=== PATIENT | female | born 2000 | race African-American/Black ===

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

== ENCOUNTER 2020-12-07 09:25 | Emergency (ER) | payer OTHER, SELFPAY ==
[2020-12-07 09:43] VITALS: BP 116/68; PULSE 77; RESP 16; TEMP 36.3; O2SAT 100
--- NOTE | 2020-12-07 10:21 | ED.GENADULT ---
HPI - General Adult General Chief complaint: Dental/Oral Stated complaint: left side jaw pain Time Seen by Provider: 12/07/20 10:21 Source: patient and RN notes reviewed Mode of arrival: ambulatory Limitations: no limitations History of Present Illness HPI narrative: 20-year-old -[place] female presents with complaints of left lower dental pain for the past 7 days. Venessa reports increasing symptoms over the past 2-3 days with increasing pain in the morning when yawning. Ibuprofen, last taken 2 days ago without relief. Denies any drainage. No fever. No neck swelling. No limitation with speaking or swallowing. Has a history of dental caries. Patient reports have not seen a dentist recently. No dental trauma. No oral lesions. Exacerbating factors consist of chewing on LT side and opening mouth wide. No relieving factors. No dentures or bridges. Tolerating liquids well. LMP 12/05/2020. Remains active. The patient reports she has not been diagnosed with COVID-19. The patient reports she is not waiting for the results of a COVID-19 lab test. The patient reports she does not have chills, weakness, or fatigue. The patient reports she does not have a new or worsening cough or shortness of breath. Denies chest pain. The patient reports she does not have any rhinorrhea, congestion, sore throat, loss of taste or smell, nausea, vomiting, abdominal pain, and diarrhea. Denies recent traveling. Denies concerns for COVID-19 or exposures. At this time, the patient is not suspected of having COVID-19. Some parts of this dictation were generated by voice recognition software and may contain typographical and/or grammatical inaccuracies. Related Data Allergies Allergy/AdvReac Type Severity Reaction Status Date / Time No Known Allergies Allergy Verified 12/07/20 10:03 Review of Systems Review of Systems: Narrative: CONSTITUTIONAL: Denies fever, chills, sweats. EYES: Denies visual changes, redness, discharge. ENT: Denies rhinorrhea, congestion, sore throat, otalgia. Complains of LT lower dental pain. CARDIOVASCULAR: Denies chest pain, palpitations, edema. RESPIRATORY: Denies dyspnea, wheezing, cough. GASTROINTESTINAL: Denies abdominal pain, nausea, vomiting, diarrhea. SKIN: Denies rash or itching. MUSCULOSKELETAL: Denies acute back pain, joint pain, or myalgia. NEUROLOGIC: Denies numbness or focal weakness. PSYCHIATRIC: Denies anxiety or depression. All systems reviewed & are unremarkable except as noted in HPI and below. [facility] Past Medical History Medical History (Updated 12/08/20 @ 00:01 by Carina Glez) No significant past medical history Surgical History Surgical History (Updated 12/07/20 @ 10:30 by ELIU Mane) No significant past surgical history Family History Family History (Updated 12/07/20 @ 10:30 by ELIU Mane) Father Alive and well Mother Alive and well Social History Social History (Updated 12/07/20 @ 10:31 by ELIU Mane) Smoking status: Never smoker Tobacco type: cigarettes Second hand tobacco smoke exposure: No Alcohol intake: never Substance use: current Substance use type: marijuana Living arrangements: with family Occupation/Education: unemployed Gender identity (if verbalized by the patient): Female Comments At time of signature, agree with the nurse past medical, surgical, social, and family history. There is no relevant family history pertinent to the presenting complaint. Exam Narrative: Exam Narrative: GENERAL: This is a well-nourished, well-developed patient, in no apparent distress. Talks in full sentences and ambulates with steady gait without dyspnea. HEAD: Normocephalic, atraumatic. EYES: PERRL. Sclera clear/white. Vision is grossly intact. EARS: External ears normal, auditory canals clear and without drainage, TMs normal without perforation. Hearing grossly intact. NOSE: External nose normal with no obviou
--- NOTE | 2020-12-07 14:08 | PC.NURSE ---
1405 prescription called into Marly Starkey at [facility] on the [address] d/t [facility] not taking her ins.
== END 2020-12-07 10:36 | disposition home or self-care (01) ==
PROVIDERS: Emergency Provider Nurse Practitioner Family
DX: K08.89 Other specified disorders of teeth and supporting structures (principal)
CPT/HCPCS: 99213; G0463

== ENCOUNTER 2021-01-04 09:25 | Emergency (ER) | payer OTHER, SELFPAY ==
[2021-01-04 09:34] VITALS: BP 125/75; PULSE 74; RESP 16; TEMP 36.4; O2SAT 99
--- NOTE | 2021-01-04 10:41 | ED.DENTAL ---
HPI - Dental/Oral General Chief complaint: Dental/Oral Stated complaint: jaw pain Time Seen by Provider: 01/04/21 10:41 Source: patient Mode of arrival: ambulatory Limitations: no limitations History of Present Illness HPI Narrative: Venessa Yancey is a 20 yo female with no PMH who comes to ER with jaw and tooth pain-seen here a few weeks ago and with the antibiotic and steroids the pain improved but has returned. She was not given a dental list last time she was here and should probably follow-up with a dentist Related Data Allergies Allergy/AdvReac Type Severity Reaction Status Date / Time No Known Allergies Allergy Verified 01/04/21 09:58 Review of Systems Review of Systems: Narrative: CONSTITUTIONAL: Denies fever, chills, sweats. EYES: Denies visual changes, redness, discharge. ENT: Denies rhinorrhea, congestion, sore throat, otalgia. CARDIOVASCULAR: Denies chest pain, palpitations, edema. RESPIRATORY: Denies dyspnea, wheezing, cough GASTROINTESTINAL: Denies abdominal pain, nausea, vomiting, diarrhea. GENITOURINARY: Denies dysuria, hematuria, abnormal discharge SKIN: Denies rash or itching. NEUROLOGIC: Denies numbness, or focal weakness. PSYCHIATRIC: Denies anxiety or depression. Left-sided jaw pain PMFSH Past Medical History Medical History No significant past medical history Surgical History Surgical History No significant past surgical history Family History Family History Father Alive and well Mother Alive and well Social History Social History Smoking status: Never smoker Tobacco type: cigarettes Second hand tobacco smoke exposure: No Alcohol intake: never Substance use: current Substance use type: marijuana Gender identity (if verbalized by the patient): Female Comments At time of signature, I agree with nursing past medical, surgical, social and family history. There is no relevant family history pertinent to the presenting complaint. Exam Narrative: Exam Narrative: GENERAL: This is a well-nourished, well-developed patient, in moderate distress. HEAD: normocephalic, atraumatic. EYES: Sclera clear/white. Vision is grossly intact. EARS: External ears normal,. Hearing grossly intact. Pain on left jaw NOSE: External nose normal without nasal discharge, nares without redness, no rhinorrhea. Pain that starts in the anterior of the ear and runs to the jaw has difficulty opening her mouth wide without pain THROAT: Mucous membranes moist, posterior pharynx pink NECK: Neck supple, non-tender CARDIOVASCULAR: Regular rate and rhythm without murmurs, gallops, or rubs. RESPIRATORY: Clear to auscultation. Breath sounds equal bilaterally. No wheezes, rales, or rhonchi. GASTROINTESTINAL: Abdomen soft, SKIN: warm, intact with no suspicious lesions or rash, good texture and turgor. NEURO: awake, alert, and oriented to person, place and time. There were no obvious focal neurologic abnormalities. Steady gait EXTREMITIES: Normal range of motion. BACK: Nontender without deformity Course Course Emergency Course: Patient seen here a couple weeks ago and given antibiotics and steroids and returns today with return of the left-sided jaw pain Started on clindamycin and high-dose ibuprofen along with viscous lidocaine Vital Signs Vital signs: Vital Signs Temperature 97.5 F L 01/04/21 09:34 Pulse Rate 74 01/04/21 09:34 Respiratory Rate 16 01/04/21 09:34 Blood Pressure 125/75 01/04/21 09:34 Pulse Oximetry 99 01/04/21 09:34 Temperature 97.5 F L 01/04/21 09:34 Pulse Rate 74 01/04/21 09:34 Respiratory Rate 16 01/04/21 09:34 Blood Pressure 125/75 01/04/21 09:34 Pulse Oximetry 99 01/04/21 09:34 MDM - Dental/Oral Differential Diagnosis Differen
== END 2021-01-04 11:04 | disposition home or self-care (01) ==
PROVIDERS: Emergency Provider Nurse Practitioner
DX: R68.84 Jaw pain (principal)
CPT/HCPCS: 99213; G0463

== ENCOUNTER 2021-01-07 13:29 | Emergency (ER) | payer OTHER, SELFPAY ==
--- NOTE | ~2021-01-07 | XR_ITS ---
XR chest 1V DATE: 01/07/2021 13:43 INDICATION: Fever TECHNIQUE: PA chest COMPARISON: None FINDINGS: Normal heart size. No hilar or mediastinal enlargement. The lungs are well inflated and helen ar of infiltrate or consolidation. No pleural effusion or pulmonary vascular congestion or pneumothor ax. Included skeletal structures are unremarkable. IMPRESSION: Negative Reviewed, dictated and finalized at location A. IMPRESSION: Negative
[2021-01-07 13:30] VITALS: BP 136/80; PULSE 115; RESP 18; TEMP 38.3; O2SAT 98
[2021-01-07 16:11] LABS: Basophils Percent Auto 0.5 % (0.2-1.2); Eosinophils Percent Auto 0.3 % (0-4.4); Hematocrit 30.7 % (37.0-47.0); Hemoglobin 9.5 g/dL (12.0-15.0); Immature Granulocyte Absolute 0.01 K/mm3 (0.00-0.031); Immature Granulocyte Percent A 0.3 % (0-0.5); Lymphocytes Absolute Auto 0.26 K/mm3 (0.9-3.2); Lymphocytes Percent Auto 6.9 % (18.3-44.2); Mean Corpuscular HGB Conc 30.9 g/dl (32-36); Mean Corpuscular Hemoglobin 23.6 pg (26-34); Mean Corpuscular Volume 76.4 fl (80-100); Mean Platelet Volume 11.9 fl (7.4-10.4); Monocytes Absolute Auto 0.4 K/mm3 (0.1-0.6); Monocytes Percent Auto 11.1 % (2.6-8.5); Neutrophils Absolute Auto 3.1 K/mm3 (1.3-6.7); Neutrophils Percent Auto 80.9 % (45.5-73.1); Platelet Count Result 198 k/mm3 (150-375); Red Blood Count 4.02 M/mm3 (4.2-5.4); Red Cell Distribution Width 15.9 % (11.5-14.5); White Blood Count 3.8 K/mm3 (4.5-10.0)
[2021-01-07 16:21] LABS: Add Urine Microscopic? YES; Appearance Urine Clear (Clear); Bilirubin Urine Negative (Negative); Blood Urine 2+ (Negative); Color Urine Yellow (Yellow); Glucose Urine UA Negative (Negative); Ketones Urine 1+ mg/dL (Negative); Leukocyte Esterase Ur Negative LEU/UL (Negative); Mucus Urine Rare /lpf; Nitrate Urine Negative (Negative); Protein Urine Negative (Negative); RBC Urine 51-75 /hpf (0-2); Specific Grav Ur 1.018 (1.001-1.035); Squamous Epithelial Cell Urine Rare /hpf (Few); Urobilinogen Urine Negative mg/dL (<2.0); WBC Urine 0-3 /hpf
[2021-01-07 16:22] LABS: Alanine Aminotransferase 10 U/L (4-35); Albumin Level 4.9 g/dL (3.5-5.1); Alkaline Phosphatase 37 U/L (38-126); Anion Gap 12 mmol/L (8-16); Aspartate Amino Transferase 29 U/L (14-36); Bilirubin,Total 0.4 mg/dL (0.2-1.3); Blood Urea Nitrogen 7 mg/dL (7-17); Carbon Dioxide 23 mmol/L (22-30); Chloride 103 mmol/L (98-107); Estimated CRCL calculation 91 ml/min; Estimated Glomerular Filt Rate > 60; Glucose 83 mg/dL (65-110); Lactic Acid Reflex 0.9 mmol/L (0.7-2.1); Potassium 3.6 mmol/L (3.4-5.0); Sodium 138 mmol/L (137-145)
[2021-01-07 17:21] VITALS: BP 124/76; PULSE 106; RESP 20; O2SAT 100
[2021-01-07] MEDS: DEXAMETHASONE SOD PHOS INJ 4 MG/ML VIAL 10 MG IM (18:05)
[2021-01-07] MEDS: KETOROLAC (*BKC) 60 MG/2 ML VIAL IM (18:05)
--- NOTE | 2021-01-07 18:20 | ED.FEVER ---
HPI - Fever General Chief Complaint: Fever Stated Complaint: FEVER, BODYACHES Time Seen by Provider: 01/07/21 17:09 History of Present Illness HPI Narrative: healthy 20 yo female presents to the ED for fever, cough, headache, and bodyaches. She believes that she has been exposed to COVID-19. No SOB, nausea, vomiting, diarrhea. She tried OTC medications with some improvement. Related Data Allergies Allergy/AdvReac Type Severity Reaction Status Date / Time No Known Allergies Allergy Verified 01/07/21 13:30 Review of Systems Review of Systems: All systems reviewed & are unremarkable except as noted in HPI and below PMFSH Past Medical History Medical History No significant past medical history Surgical History Surgical History No significant past surgical history Family History Family History Father Alive and well Mother Alive and well Social History Social History Smoking status: Never smoker Tobacco type: cigarettes Second hand tobacco smoke exposure: No Alcohol intake: never Substance use: current Substance use type: marijuana Gender identity (if verbalized by the patient): Female Exam Const: General: healthy appearing, no acute distress and alert Orientation/consciousness: patient oriented x3 HENMT: Head: normal to inspection Neck: Neck: normal visual inspection and no lymphadenopathy Chest: Chest palpation & inspection: no tenderness Resp: Effort & Inspection: normal respiratory effort Auscultation: clear to auscultation bilaterally, no rales, no rhonchi and no wheezes Cardio: Jugular venous distension: no JVD Rate: regular rate Rhythm: regular rhythm Heart sounds: no murmurs GI: Inspection: non-distended GI Palp: Yes Soft to palpation and No Tenderness to palpation present (GI) Skin: General skin exam: normal color Neuro: General: patient oriented x3 and moves all extremities Speech: normal speech Extrem: General: no edema Psych: Appearance: well kempt Affect: normal affect Course Vital Signs Vital signs: Vital Signs Temperature 38.3 C H 01/07/21 13:30 Pulse Rate 115 H 01/07/21 13:30 Respiratory Rate 18 01/07/21 13:30 Blood Pressure 136/80 01/07/21 13:30 Pulse Oximetry 98 01/07/21 13:30 Temperature 38.3 C H 01/07/21 13:30 Pulse Rate 88 01/07/21 18:24 Respiratory Rate 16 01/07/21 18:24 Blood Pressure 115/77 01/07/21 18:24 Pulse Oximetry 100 01/07/21 18:24 MDM - Fever MDM Narrative Medical decision making narrative: Mild fever. Vitals and symptoms improved with treatment. Most likely COVID-19. No indication for admission. Medical Records Attestation: I reviewed the patient's medical records. Lab Data Attestation: I reviewed the patient's lab results. Result diagrams: 01/07/21 15:43 01/07/21 15:43 Labs: Lab Results 01/07/21 01/07/21 01/07/21 Range/Units 15:43 15:43 15:43 WBC 3.8 L (4.5-10.0) K/mm3 RBC 4.02 L (4.2-5.4) M/mm3 Hgb 9.5 L (12.0-15.0) g/dL Hct 30.7 L (37.0-47.0) % MCV 76.4 L (80-100) fl MCH 23.6 L (26-34) pg MCHC 30.9 L (32-36) g/dl RDW 15.9 H (11.5-14.5) % Plt Count 198 (150-375) k/mm3 MPV 11.9 H (7.4-10.4) fl Immature Gran % (Auto) 0.3 (0-0.5) % Neut % (Auto) 80.9 H (45.5-73.1) % Lymph % (Auto) 6.9 L (18.3-44.2) % Ness % (Auto) 11.1 H (2.6-8.5) % Eos % (Auto) 0.3 (0-4.4) % Baso % (Auto) 0.5 (0.2-1.2) % Lymph # (Auto) 0.26 L (0.9-3.2) K/mm3 Ness # (Auto) 0.4 (0.1-0.6) K/mm3 Eos # (Auto) 0.0 (0-0.3) K/mm3 Baso # (Auto) 0.0 (0.0-0.1) K/mm3 Abs Immat Gran (auto) 0.01 (0.00-0.031) K/mm3 Absolute Neuts (auto) 3.1 (1.3-6.7) K/mm3 Absolute Nucleated
[2021-01-07 18:24] VITALS: BP 115/77; PULSE 88; RESP 16; O2SAT 100
[2021-01-09 15:38] LABS: SARS-CoV-2 RNA PCR Positive
== END 2021-01-07 18:25 | disposition home or self-care (01) ==
PROVIDERS: Emergency Medicine; Emergency Provider Emergency Medicine
DX: U07.1 COVID-19 (principal)
CPT/HCPCS: 36415; 71045; 80053; 81001; 81025; 83605; 85025; 87040; 96372; 99284; C9803; J1100; J1885; U0003; U0005

== ENCOUNTER 2021-08-19 09:00 | Emergency (ER) | payer OTHER, SELFPAY ==
--- NOTE | 2021-08-19 09:03 | ED.EAR ---
HPI - Ear Problem General Chief complaint: Ear Stated complaint: Ear Pain Time Seen by Provider: 08/19/21 09:15 Source: patient, RN notes reviewed and old records reviewed Mode of arrival: ambulatory Limitations: no limitations History of Present Illness HPI Narrative: 21-year-old female presents to the [facility] with complaints of right ear discomfort with decreased hearing. Denies any headache, nausea, vomiting. No chest pain or abdominal pain. No blurry vision or change in vision. Patient states that she was wrestling around with a friend and they clapped her in the ear. Since she has had muffled hearing and ear pain. No discharge. Denies fevers. MD Complaint: ear pain (right) Location: right ear Related Data Home Medications Medication Instructions Recorded Confirmed ferrous sulfate 325 mg PO DAILY 08/19/21 08/19/21 sertraline 50 mg PO DAILY 08/19/21 08/19/21 Allergies Allergy/AdvReac Type Severity Reaction Status Date / Time No Known Allergies Allergy Verified 08/19/21 09:27 Review of Systems Review of Systems: All systems reviewed & are unremarkable except as noted in HPI and below Constitutional: Constitutional: Reports no additional constitutional complaints, Denies chills and Denies fever(s) Eyes: Eyes: Reports no additional eye complaints, Denies change in vision and Denies photophobia ENT: Reports as per HPI, Denies change in voice, Denies dental pain, Denies vertigo, Denies dizziness and Denies throat swelling Comments: Ear pain right Cardiovascular: Cardiovascular: Reports no additional cardiovascular complaints, Denies chest pain and Denies dyspnea Respiratory: Respiratory: Reports no additional respiratory complaints, Denies cough and Denies dyspnea Gastrointestinal: Gastrointestinal: Reports no additional gastrointestinal complaints, Denies abdominal pain, Denies nausea and Denies vomiting Musculoskeletal: Musculoskeletal: Reports no additional musculoskeletal complaints Integumentary/Breasts: Skin/Breast: Reports system reviewed and no additional complaints, except as docu Neurologic: Reports system reviewed and no additional complaints, except as documented, Denies vertigo and Denies dizziness Psychiatric: Psychiatric: Reports no additional psychiatric complaints Allergic/Immunologic: Allergic/Immunologic: Reports no additional allergic/immunologic complaints and Denies throat swelling PMFSH Past Medical History Medical History No significant past medical history Surgical History Surgical History No significant past surgical history Family History Family History Father Alive and well Mother Alive and well Social History Social History Smoking status: Never smoker Tobacco type: cigarettes Second hand tobacco smoke exposure: No Alcohol intake: never Substance use: current Substance use type: marijuana Gender identity (if verbalized by the patient): Female Comments At the time of my signature, I reviewed and agree with the nursing past medical, surgical, social, and family history. There is no relevant family history pertinent to the patient complaint. Exam Const: General: healthy appearing, no acute distress and alert Nutritional Appearance: well nourished Orientation/consciousness: patient oriented x3 Limitations: no limitations HENMT: Head: normal to inspection Ears: external ears normal, TM normal on the left, EAC's normal and TM abnormal wth effusion, erythematous, with loss of landmarks and other (Thick white fluid behind TM) Outer ear/TM images: 1. Erythema 2. Erythema versus hematoma of the TM General nose exam: Normal external nose present and Normal nasal mucous membranes and turbinates present Face and sinus: normal f
[2021-08-19 09:08] VITALS: BP 129/74; PULSE 57; RESP 16; TEMP 36.9; O2SAT 100
== END 2021-08-19 09:34 | disposition home or self-care (01) ==
PROVIDERS: Emergency Provider Nurse Practitioner; PCP Physician Assistant
DX: H73.91 Unspecified disorder of tympanic membrane, right ear (principal); H66.91 Otitis media, unspecified, right ear
CPT/HCPCS: 99213; G0463

== ENCOUNTER 2022-01-18 23:14 | Emergency (ER) | payer OTHER, SELFPAY ==
[2022-01-18 23:30] VITALS: BP 110/89; PULSE 82; RESP 18; TEMP 36.3; O2SAT 98
[2022-01-19 00:55] LABS: Basophils Percent Auto 0.7 % (0.2-1.2); Eosinophils Absolute Auto 0.1 K/mm3 (0-0.3); Eosinophils Percent Auto 1.1 % (0-4.4); Hemoglobin 9.4 g/dL (12.0-15.0); Immature Granulocyte Absolute 0.02 K/mm3 (0.00-0.031); Immature Granulocyte Percent A 0.4 % (0-0.5); Lymphocytes Absolute Auto 1.11 K/mm3 (0.9-3.2); Lymphocytes Percent Auto 19.8 % (18.3-44.2); Mean Corpuscular HGB Conc 31.3 g/dl (32-36); Mean Corpuscular Volume 76.7 fl (80-100); Mean Platelet Volume 11.6 fl (7.4-10.4); Monocytes Absolute Auto 0.5 K/mm3 (0.1-0.6); Monocytes Percent Auto 8.4 % (2.6-8.5); Neutrophils Absolute Auto 3.9 K/mm3 (1.3-6.7); Neutrophils Percent Auto 69.6 % (45.5-73.1); Platelet Count Result 186 k/mm3 (150-375); Red Blood Count 3.91 M/mm3 (4.2-5.4); Red Cell Distribution Width 16.3 % (11.5-14.5); White Blood Count 5.6 K/mm3 (4.5-10.0)
[2022-01-19 01:05] LABS: Alanine Aminotransferase 23 U/L (6-35); Albumin Level 4.8 g/dL (3.5-5.1); Alkaline Phosphatase 37 U/L (38-126); Anion Gap 11 mmol/L (8-16); Aspartate Amino Transferase 46 U/L (14-36); Bilirubin,Total 0.4 mg/dL (0.2-1.3); Blood Urea Nitrogen 13 mg/dL (7-17); Calcium 9.5 mg/dL (8.4-10.2); Carbon Dioxide 31 mmol/L (22-30); Chloride 98 mmol/L (98-107); Estimated CRCL calculation 99 ml/min; Estimated Glomerular Filt Rate > 60; Glucose 100 mg/dL (65-110); Lipase 131 U/L (23-300); Potassium 3.9 mmol/L (3.4-5.0); Sodium 140 mmol/L (137-145)
[2022-01-19 01:41] LABS: Appearance Urine Clear (Clear); Bilirubin Urine Negative (Negative); Blood Urine 2+ (Negative); Color Urine Yellow (Yellow); Glucose Urine UA Negative (Negative); Ketones Urine Negative (Negative); Leukocyte Esterase Ur Trace LEU/UL (Negative); Nitrate Urine Negative (Negative); Protein Urine Negative (Negative); Specific Grav Ur 1.015 (1.001-1.035); Urobilinogen Urine 0.2 mg/dL (<2.0)
--- NOTE | 2022-01-19 01:46 | ED.NAVMDI ---
HPI - Nausea/Vomiting/Diarrhea General Chief complaint: Nausea/Vomiting/Diarrhea Stated complaint: vomitng Time Seen by Provider: 01/19/22 01:16 History of Present Illness HPI Narrative: 21-year-old female presents the emergency room for evaluation of multiple episodes of nonbilious nonbloody vomiting. Patient states symptoms began about 4 hours prior to arrival. Denies any abdominal pain. Denies any fever. Related Data Allergies Allergy/AdvReac Type Severity Reaction Status Date / Time No Known Allergies Allergy Verified 08/19/21 09:27 Review of Systems Review of Systems: CONSTITUTIONAL: Denies fever, chills, or sweats. EYES: Denies visual changes, redness, or discharge. ENT: Denies rhinorrhea, congestion, sore throat, or otalgia. CARDIOVASCULAR: Denies chest pain, palpitations, or edema. RESPIRATORY: Denies cough or dyspnea. GASTROINTESTINAL: Reports nausea and vomiting GENITOURINARY: Denies dysuria or hematuria. SKIN: Denies rash or itching. MUSCULOSKELETAL: Denies back pain, joint pain, or myalgia. NEUROLOGIC: Denies headache, numbness, dizziness, or weakness. PSYCHIATRIC: Denies anxiety or depression. [facility] Past Medical History Medical History No significant past medical history Surgical History Surgical History No significant past surgical history Family History Family History Father Alive and well Mother Alive and well Social History Social History Smoking status: Never smoker Tobacco type: cigarettes Second hand tobacco smoke exposure: No Alcohol intake: never Substance use: current Substance use type: marijuana Gender identity (if verbalized by the patient): Female Exam Narrative: GENERAL: Well-appearing, well-nourished, no physical limitations, and in no acute distress. HEAD: Normocephalic, atraumatic. EYES: Conjunctivae normal, PERRLA and EOMI. CHEST: Clear to auscultation. No respiratory distress. No wheezes rales or rhonchi. HEART: Regular rate and rhythm. No murmur heard. Normal peripheral pulses. ABDOMEN: Soft, nontender, nondistended, normal active bowel sounds. BACK: No CVA tenderness; No cervical/thoracic/lumbar tenderness, step-offs, bony abnormality; FROM EXTREMITIES: Normal range of motion. No edema. No clubbing or cyanosis SKIN: Warm, dry, no rash. No noted wounds NEURO: No focal deficits. Alert and oriented x3. MAEW. CN's II-XI intact bilaterally, normal gait PSYCH: Cooperative. Normal mood and affect. Course Vital Signs Vital signs: Vital Signs Temperature 36.3 C L 01/18/22 23:30 Pulse Rate 82 01/18/22 23:30 Respiratory Rate 18 01/18/22 23:30 Blood Pressure 110/89 01/18/22 23:30 Pulse Oximetry 98 01/18/22 23:30 Oxygen Delivery Room Air 01/18/22 23:30 Temperature 36.3 C L 01/18/22 23:30 Pulse Rate 88 01/19/22 02:21 Respiratory Rate 18 01/19/22 02:21 Blood Pressure 118/75 01/19/22 02:21 Pulse Oximetry 100 01/19/22 02:21 Oxygen Delivery Room Air 01/18/22 23:30 MDM - Nausea/Vomiting/Diarrhea Lab Data Result diagrams: 01/19/22 00:48 01/19/22 00:48 Labs: Lab Results 01/19/22 01/19/22 01/19/22 Range/Units 00:48 00:48 01:28 WBC 5.6 (4.5-10.0) K/mm3 RBC 3.91 L (4.2-5.4) M/mm3 Hgb 9.4 L (12.0-15.0) g/dL Hct 30.0 L (37.0-47.0) % MCV 76.7 L (80-100) fl MCH 24.0 L (26-34) pg MCHC 31.3 L (32-36) g/dl RDW 16.3 H (11.5-14.5) % Plt Count 186 (150-375) k/mm3 MPV 11.6 H (7.4-10.4) fl Immature Gran % (Auto) 0.4 (0-0.5) % Neut % (Auto) 69.6 (45.5-73.1) % Lymph % (Auto) 19.8 (18.3-44.2) % [place] % (Auto) 8.4 (2.6-8.5) % Eos % (Auto) 1.1 (0-4.4) % Baso % (Auto) 0.7 (0.2-1.2) % Lymph # (Auto)
[2022-01-19 01:54] LABS: Add Urine Microscopic? YES; Mucus Urine Rare /lpf; RBC Urine 0-2 /hpf (0-2); Squamous Epithelial Cell Urine Moderate /hpf (Few); WBC Urine 0-3 /hpf
[2022-01-19] MEDS: SODIUM CHLORIDE 0.9% IV 1,000 ML 999 ML IV CONT (01:55)
[2022-01-19] MEDS: ONDANSETRON INJ 4 MG/2 ML VIAL IV PUSH (01:55)
[2022-01-19 02:21] VITALS: BP 118/75; PULSE 88; RESP 18; O2SAT 100
[2022-01-19] MEDS: KETOROLAC 30 MG/ML VIAL (*BKC) IV PUSH (02:38)
[2022-01-19 03:11] VITALS: BP 113/78; PULSE 89; RESP 18; O2SAT 100
== END 2022-01-19 03:12 | disposition home or self-care (01) ==
PROVIDERS: Emergency Medicine; Emergency Provider Nurse Practitioner Family; PCP Physician Assistant
DX: A05.9 Bacterial foodborne intoxication, unspecified (principal)
CPT/HCPCS: 36415; 80053; 81001; 81025; 83690; 85025; 96361; 96374; 96375; 99284; J1885; J2405; J7030